=== PATIENT | male | born 1965 | race African-American/Black ===

== ENCOUNTER 2017-02-10 08:27 | Day surgery (SDC) | payer BC, OTHER ==
--- NOTE | 2017-01-29 16:12 | P.GSHP ---
History of Present Illness H&P Date: 01/29/17 Chief Complaint: Bilateral groin skin lesions Patient seen in the office complaining of lesions in both groins. These been there for some years but increasing in size. He states they're painful at times and quite difficult to keep clean. He is unsure as to the etiology. He has also seen other specialists for this in the past. He did have attempts at ablation by manager quality systems performed which she states was not helpful. No history of genital warts. Surgical - Exam Physical exam: General: Well-developed, well-nourished HEENT: Normocephalic, sclerae nonicteric Abdomen: Nontender, nondistended Extremities: No edema, bilateral groin with warty growths noted, these are somewhat raised and verrucous, mild tenderness, largest skin lesion in the right groin measuring approximately 2 cm, no erythema Neuro: Alert and oriented Assessment and Plan (1) Skin lesion Narrative/Plan: We'll proceed with surgical excision of these lesions with possible ablation of the smaller ones on 712. The risks of bleeding infection and recurrence were discussed. He understands and wishes to proceed. Status: Acute
[2017-02-08 09:38] VITALS: BMI 37.0
[~2017-02-10 08:27] MED LIST: DEXAMETHASONE SOD PHOSPHATE 10 MG/ML 1 ML VIAL IV ONE; HEPARIN SODIUM,PORCINE 5,000 UNIT/ML 1 ML VIAL SQ ONE; HYDROmorphone 1 MG/ML 1 ML SYRINGE IVP PRN; LACTATED RINGERS 1,000 ML IV SCH; MIDAZOLAM 2 MG/2 ML VIAL IV PRN; ONDANSETRON 4 MG/2 ML VIAL IVP ONE; Pre Op ABX Message 1 EACH MISC MISCELLANE ONE; SCOPOLAMINE 1.5MG/72HR PATCH TRANSDERM ONE
[2017-02-10] MEDS ORDERED: ceFAZolin 2 GM in SODIUM CHLORIDE 0.9% 100 ML IVPB STA (09:48)
[2017-02-10] MEDS ORDERED: MIDAZOLAM 2 MG/2 ML VIAL ONE (10:06)
[2017-02-10] MEDS ORDERED: fentaNYL (PF) 50 MCG/ML 2 ML AMP ONE (10:06)
[2017-02-10] MEDS ORDERED: PROPOFOL 10 MG/ML 20 ML VIAL IV ONE (10:06)
[2017-02-10] MEDS ORDERED: BUPIVACAINE (PF) 0.25% 30 ML VIAL SQ ONE ×2 (10:25)
[2017-02-10] MEDS ORDERED: LACTATED RINGERS 1,000 ML IV ONE (10:32)
[2017-02-10] MEDS ORDERED: BACITRACIN 500 UNIT/GM OINT 28.4 GM TUBE TOPICAL ONE (10:37)
[2017-02-10] MEDS ORDERED: NALOXONE 0.4 MG/ML 1 ML VIAL IV PRN (10:42)
[2017-02-10] MEDS ORDERED: HYDROcodone/APAP 5-325MG 1 EACH TAB PO PRN (10:42)
--- NOTE | 2017-02-10 10:44 | P.PCN ---
Date of Procedure: 02/10/17 Preoperative Diagnosis: Postoperative Diagnosis: Procedure(s) Performed: PREOPERATIVE DIAGNOSIS: Bilateral groin lesion suspect condyloma POSTOPERATIVE DIAGNOSIS: Same PROCEDURE: Excision SURGEON: Kelsey EBL: Minimal ANESTHESIA: Sedation COMPLICATIONS: None OPERATIVE PROCEDURE: Patient's place never table in the frog-leg position. Both groins were prepped and draped in usual sterile fashion. The patient had 2 separate area of lesions in the right groin. The first was removed and this measured approximately 2 x 3.5 cm. This is excised sharply. The skin incision itself was closed using a running 4-0 nylon stitch after a single 3-0 Vicryl simultaneous stitch was placed. A smaller 1 cm lesion was seen lateral to this and excised in a similar fashion and closed using a single 4-0 nylon stitch. The left groin had a 1.5 similar lesion that was excised and removed closed using 2 separate 4 nylon sutures. Sterile dressings were applied. DISPOSITION: Stable to recovery room Implants: Indications for Procedure: Operative Findings: Description of Procedure:
[2017-02-10 10:54] VITALS: RESP 18; TEMP 97.4
[2017-02-10 12:06] VITALS: BP 139/87; PULSE 57
== END 2017-02-10 12:26 | disposition home or self-care (01) ==
LOC: OR 08:27
PROVIDERS: ATTEND Surgery
DX: A63.0 Anogenital (venereal) warts (principal); I10 Essential (primary) hypertension; Z79.899 Other long term (current) drug therapy
CPT/HCPCS: 88305; 11406; J2250; J1644; J1100; J0690; J2405; J3010; J2704

== ENCOUNTER → 2017-06-09 | Outpatient (CLI) | payer OTHER ==
--- NOTE | 2017-06-09 22:10 | MR ---
EXAMINATION TYPE: MR sharonine/lspine wo con DATE OF EXAM: 06/09/2017 COMPARISON: NONE HISTORY: Cervicalgia and lumbago per order. Headache with neck pain causing pain or weakness in both arms and fingers per patient. Low back pain for over 10 years radiating to right buttocks thigh and c kwame per patient. TECHNIQUE: Multiplanar, multisequence imaging of the cervical and lumbar spine are performed without IV contrast. FINDINGS: C-SPINE: FINDINGS: Sagittal images of the cervical spine show the craniocervical junction to appear within nor mal limits. The cervical and upper thoracic spinal cord shows mild AP diameter narrowing with some i ncreased signal at C5-C6 level where there is prominent posterior disc herniation seen on sagittal im age 6. Vertebral alignment is straightened. The vertebral body and intravertebral disk heights are normal. Additional posterior disc herniations are present C4-C5 C7-T1 and most prominent at T1-T2 le vels on sagittal images The bone marrow signal intensity is within normal limits. Mild anterior spurr ing anterior inferior C5 endplate is noted. Axial images show the C2-C3 level to appear within normal limits. Axial images at C3-C4 level show broad based posterior disc protrusion causing mild to moderate left greater than right neural foraminal narrowing. Spinal canal is preserved. Axial images at C4-C5 level show broad disc protrusion with more focal left paracentral/foraminal dis c protrusion component. There is effacement of the anterior thecal sac. There is moderate to severe l eft and mild to moderate right-sided neural foraminal narrowing at this level identified. Axial images at C5-C6 level show broad-based posterior disc protrusion with more prominent right para central component. There is effacement of anterior thecal sac up to ventral surface of spinal cord wh ich is flattened with increased signal on axial image 21. There is advanced left and moderate right-s ided neural foraminal narrowing at this level identified. Axial images at C6-C7 level show broad-based posterior disc protrusion effacing anterior thecal sac w ith advanced left and mild to moderate right-sided neural foraminal narrowing seen. Axial images at C7-T1 level show broad-based lobulated posterior disc protrusion effacing anterior th ecal sac with mild left greater than right neural foraminal narrowing at this level identified. IMPRESSION: Straightening of cervical spine with multilevel degenerative changes seen, attention to C5-C6 level where there is mass effect or edema on spinal cord due to disc herniation. Other findings are noted as detailed above. L-SPINE: Exam is noted suboptimal as patient only completed T2 sagittal imaging and then could not co mplete further sequences. Sagittal T2 images of the lumbar spine show vertebral body heights and alig nment to appear satisfactory. The intervertebral discs demonstrate some disc desiccation lower lumbar levels but disc space heights are maintained. No large posterior disc herniations are present on sag ittal images. The conus medullaris is normal in position and signal ending near mid L1 level. The b one marrow signal intensity is within normal limits. No significant spurring is seen. IMPRESSION: Suboptimal study, no significant or suspicious findings identified on single sagittal T2 sequence.
== END | disposition home or self-care (01) ==
LOC: RADMRIMAIN 20:47
PROVIDERS: ATTEND Psychiatry & Neurology Neurology
DX: M54.5 Low back pain (principal)
CPT/HCPCS: 72141; 72148

== ENCOUNTER → 2018-04-13 | Outpatient (CLI) | payer OTHER ==
[2018-04-13 10:36] LABS: Basophils % (A) 1 %; Eosinophils # (A) 0.1 k/uL (0-0.7); Eosinophils % (A) 2 %; HGB 14.7 gm/dL (13.0-17.5); Lymphocytes # (A) 2.2 k/uL (1.0-4.8); Lymphocytes % (A) 49 %; MCH 30.3 pg (25.0-35.0); MCHC 31.9 g/dL (31.0-37.0); Mean Platelet Volume 7.6; Monocytes # (A) 0.3 k/uL (0-1.0); Monocytes % (A) 7 %; Neutrophils # (A) 1.8 k/uL (1.3-7.7); Neutrophils % (A) 40 %; Platelet Count 224 k/uL (150-450); RBC 4.84 m/uL (4.30-5.90); RDW 13.2 % (11.5-15.5); WBC 4.5 k/uL (3.8-10.6)
== END | disposition home or self-care (01) ==
LOC: LABPAT 09:49
PROVIDERS: ATTEND Orthopaedic Surgery
DX: Z01.818 Encounter for other preprocedural examination (principal); M23.92 Unspecified internal derangement of left knee; Z01.812 Encounter for preprocedural laboratory examination
CPT/HCPCS: 36415; 80051; 85025; 93005

== ENCOUNTER 2018-04-27 10:03 | Day surgery (SDC) | payer OTHER ==
[2018-04-20 13:14] VITALS: BMI 35.9
--- NOTE | 2018-04-26 19:38 | HP ---
HISTORY AND PHYSICAL REASON FOR ADMISSION: Surgery is scheduled for 04/27/2018. Freddy Jordan is a 52-year-old patient seen with progressive left knee pain. Treatment options were discussed. He elected to proceed with left knee arthroscopy. Consent was obtained. PAST MEDICAL HISTORY: Hypertension. PAST SURGICAL HISTORY: Left shoulder arthroscopy. MEDICATIONS: Cardizem, Flomax, hydrochlorothiazide, lisinopril, [place]. ALLERGIES: DARVOCET. SOCIAL HISTORY: The patient denies tobacco use. PHYSICAL EXAMINATION: Evaluation of left knee: Range of motion is 0 to 125 degrees. Mild effusion. Tenderness medial joint line. Positive medial Mark's. Crepitus medial patellofemoral compartments. Ligaments stable. Hip rotation without pain. Distal neurovascular exam intact. RADIOGRAPHS: Radiographs of the left knee revealed mild osteoarthritis. MRI of the left knee revealed medial meniscal tear, osteoarthritis, possible ACL tear. IMPRESSION: Internal derangement, left knee with medial meniscal tear and possible ACL tear. PLAN: Left knee arthroscopy with partial meniscectomy and debridement. Surgery scheduled for 04/27/2018. MMODL / IJN: [id number] /
[~2018-04-27 10:03] MED LIST changes: -DEXAMETHASONE SOD PHOSPHATE 10 MG/ML 1 ML VIAL IV ONE; -HEPARIN SODIUM,PORCINE 5,000 UNIT/ML 1 ML VIAL SQ ONE; -HYDROmorphone 1 MG/ML 1 ML SYRINGE IVP PRN; +LIDOCAINE 1% 20 ML VIAL (10MG/ML) FOR IV START INTRADERMA PRN; -MIDAZOLAM 2 MG/2 ML VIAL IV PRN; -ONDANSETRON 4 MG/2 ML VIAL IVP ONE; +ONDANSETRON 4 MG/2 ML VIAL ONE; -Pre Op ABX Message 1 EACH MISC MISCELLANE ONE; -SCOPOLAMINE 1.5MG/72HR PATCH TRANSDERM ONE
[2018-04-27] MEDS ORDERED: MIDAZOLAM 2 MG/2 ML VIAL ONE (12:07)
[2018-04-27] MEDS ORDERED: fentaNYL (PF) 50 MCG/ML 2 ML AMP ONE (12:07)
[2018-04-27] MEDS ORDERED: PROPOFOL 10 MG/ML 20 ML VIAL IV ONE (12:07)
[2018-04-27] MEDS ORDERED: LIDOCAINE 1% INJ 10MG/ML (20 ML MDV) ONE (12:07)
[2018-04-27] MEDS ORDERED: SUCCINYLCHOLINE CHLORIDE 100 MG/5 ML SYR IV ONE (12:07)
[2018-04-27] MEDS ORDERED: BUPIVACAIN-EPI 0.25%-1:200,000 30 ML VIAL INTRAARTIC ONE (12:25)
--- NOTE | 2018-04-27 12:56 | P.OP ---
Date of Procedure: 04/27/18 Preoperative Diagnosis: Internal derangement left knee Postoperative Diagnosis: 1. Tear medial and lateral meniscus left knee 2. Grade 2 chondromalacia patella left knee 3. Reactive synovitis medial and suprapatellar compartments left knee Procedure(s) Performed: 1. Arthroscopic partial medial and lateral meniscectomy left knee 2. Arthroscopic chondroplasty medial femoral condyle left knee 3. Arthroscopic partial synovectomy medial and suprapatellar compartments left knee Anesthesia: FIDENCIOA, local Surgeon: Jonathan Buchanan Estimated Blood Loss (ml): 10 Pathology: none sent Condition: stable Disposition: PACU Indications for Procedure: 52-year-old patient seen with progressive left knee pain. After having treatment options discussed, he elected to proceed with arthroscopy. Operative Findings: See description of procedure Description of Procedure: Patient was taken to the operative suite. Patient underwent a general anesthetic by the department of anesthesia. Patient was given preoperative antibiotics. The left lower extremity was placed in a well-padded arthroscopic leg hoyos. The left leg was prepped and draped in the normal sterile orthopedic fashion. A lateral parapatellar and suprapatellar incision was made. Trochars were inserted. Arthroscopy was initiated. Suprapatellar pouch revealed diffuse thick reactive synovitis. The patellofemoral joint appeared to articulate congruently. There grade 2 chondromalacia of the patella with some osteochondral tears present. The scope was guided into the medial gutter. No loose bodies or plica were identified. The scope was then guided into the medial compartment. A medial parapatellar incision was made. Trocar inserted followed by probe. Was a complex tear involving the posterior horn of the medial meniscus. There was thick reactive synovitis anteriorly. There was no smoking chondromalacia. There were no loose bodies. I performed a partial medial meniscectomy down to stable tissue. I performed a partial synovectomy decompressing that reactive synovitis. The residual meniscus was probed and found to be stable. There was good decompression of the synovitis anteriorly. Scope and probe were then guided into the intercondylar notch. Cruciates were identified, probed and found to be stable. The scope and probe were then guided into lateral compartment. There was a radial tear mid body lateral meniscus. No chondromalacia was present. No loose bodies were present. There was no synovitis synovitis present. I performed a partial lateral meniscectomy down to stable tissue. The residual meniscus was stable. The scope was in guided back into the suprapatellar compartment. I introduced a motorized shaver into the suprapatellar compartment. I debrided some piecemeal fragments of meniscus I encountered. I performed a chondroplasty of the patella down to stable tissue. I performed a partial synovectomy decompressing the thick reactive synovitis in the suprapatellar compartment. The residual osteochondral surface of patella was now probed and found to be stable. I took one more look on the entire knee, no residual debris. Instruments were now removed from the joint. The joint was infiltrated with .25% Marcaine. Steri- Strips were applied to the portal sites. Sterile dressings were applied. The patient was placed into a SHIN hose. No tourniquet was utilized. The patient was awakened, transferred to a bed and taken to recovery stable satisfactory condition.
[2018-04-27 13:02] VITALS: TEMP 98
[2018-04-27] MEDS: HYDROmorphone 0.5 MG/0.5 ML SYRINGE IVP PRN ×2 (13:11→13:16)
[2018-04-27 13:46] VITALS: RESP 18
[2018-04-27 14:23] VITALS: BP 140/82; PULSE 78
== END 2018-04-27 14:38 | disposition home or self-care (01) ==
LOC: OR 10:03
PROVIDERS: ATTEND Orthopaedic Surgery
DX: S83.242A Other tear of medial meniscus, current injury, left knee, initial encounter (principal); S83.282A Other tear of lateral meniscus, current injury, left knee, initial encounter; X58.XXXA Exposure to other specified factors, initial encounter; M22.42 Chondromalacia patellae, left knee; M65.862 Other synovitis and tenosynovitis, left lower leg; I10 Essential (primary) hypertension; Z79.891 Long term (current) use of opiate analgesic; Z79.899 Other long term (current) drug therapy; Z88.5 Allergy status to narcotic agent
CPT/HCPCS: 29880; J2250; J0690; J2405; J2001; J3010; J0330; J2704; J1170

== ENCOUNTER → 2019-04-06 | Outpatient (CLI) | payer OTHER ==
[2019-04-06 14:23] LABS: Basophils % (A) 0 %; Eosinophils # (A) 0.1 k/uL (0-0.7); Eosinophils % (A) 2 %; HCT 45.3 % (39.0-53.0); HGB 15.1 gm/dL (13.0-17.5); Lymphocytes # (A) 2.1 k/uL (1.0-4.8); Lymphocytes % (A) 37 %; MCH 31.7 pg (25.0-35.0); MCHC 33.3 g/dL (31.0-37.0); MCV 95.1 fL (80.0-100.0); Mean Platelet Volume 8.1; Monocytes # (A) 0.5 k/uL (0-1.0); Monocytes % (A) 9 %; Neutrophils # (A) 2.8 k/uL (1.3-7.7); Neutrophils % (A) 49 %; Platelet Count 236 k/uL (150-450); RBC 4.77 m/uL (4.30-5.90); RDW 14.1 % (11.5-15.5); WBC 5.6 k/uL (3.8-10.6)
[2019-04-06 14:33] LABS: Potassium 3.6 mmol/L (3.5-5.1)
== END | disposition home or self-care (01) ==
LOC: LABPAT 13:40
PROVIDERS: ATTEND Orthopaedic Surgery
DX: Z01.812 Encounter for preprocedural laboratory examination (principal); M23.92 Unspecified internal derangement of left knee
CPT/HCPCS: 80051; 85025; 93005

== ENCOUNTER 2019-04-13 10:37 | Day surgery (SDC) | payer OTHER ==
[2019-04-10 12:01] VITALS: BMI 37.2
--- NOTE | 2019-04-12 14:07 | HP ---
HISTORY AND PHYSICAL DATE OF SURGERY: 04/13/2019 Freddy Jordan is a 53-year-old patient seen with left knee pain, options regarding treatment were discussed. He elected to proceed with arthroscopy. Consent was obtained. PAST MEDICAL HISTORY: Hypertension. PAST SURGICAL HISTORY: Left shoulder arthroscopy and left knee arthroscopy. DAILY MEDICATIONS: 1. Cardizem. 2. Flomax. 3. Hydrochlorothiazide. 4. Lisinopril. ALLERGIES: DARVOCET. SOCIAL HISTORY: Denies tobacco use. PHYSICAL EVALUATION OF THE LEFT KNEE: His range of motion is -2/3 to 120 degrees. There is a moderate effusion present, tenderness medial joint line. Positive medial Mark's. Ligaments stable. Hip rotation without pain. Distal neurovascular exam is intact. RADIOGRAPHS OF THE LEFT KNEE: Revealed mild osteoarthritis. MRI left knee revealed medial meniscal tear. IMPRESSION: 1. Internal derangement left knee with medial meniscal tear. 2. Left knee osteoarthritis. 3. Hypertension. PLAN: Left knee arthroscopy with partial meniscectomy and debridement. MMODL / IJN: [id number] /
[~2019-04-13 10:37] MED LIST changes: -LACTATED RINGERS 1,000 ML IV SCH; -LIDOCAINE 1% 20 ML VIAL (10MG/ML) FOR IV START INTRADERMA PRN; -ONDANSETRON 4 MG/2 ML VIAL ONE; +ceFAZolin 3 GM in SODIUM CHLORIDE 0.9% 100 ML IVPB ONE
[2019-04-13] MEDS ORDERED: LIDOCAINE 1% 20 ML VIAL (10MG/ML) FOR IV START INTRADERMA ONE (11:14)
[2019-04-13 11:17] VITALS: TEMP 98
[2019-04-13] MEDS ORDERED: LACTATED RINGERS 1,000 ML IV ONE (11:17)
[2019-04-13] MEDS ORDERED: DEXAMETHASONE SOD PHOS (MDV) 100 MG/10 ML VIAL IVP ONE (11:18)
[2019-04-13] MEDS ORDERED: ONDANSETRON 4 MG/2 ML VIAL IVP ONE (11:18)
[2019-04-13] MEDS ORDERED: KETAMINE 10 MG/ML 20 ML VIAL ONE (12:24)
[2019-04-13] MEDS ORDERED: PROPOFOL 10 MG/ML 20 ML VIAL IV ONE (12:24)
[2019-04-13] MEDS ORDERED: MIDAZOLAM 2 MG/2 ML VIAL ONE (12:24)
[2019-04-13] MEDS ORDERED: SUCCINYLCHOLINE CHLORIDE 100 MG/5 ML SYR IV ONE (12:24)
[2019-04-13] MEDS ORDERED: LIDOCAINE 1% INJ 10MG/ML (20 ML MDV) ONE (12:24)
[2019-04-13] MEDS ORDERED: fentaNYL (PF) 50 MCG/ML 2 ML AMP ONE (12:24)
[2019-04-13] MEDS ORDERED: BUPIVACAINE (PF) 0.25% 30 ML VIAL INTRAARTIC ONE (12:51)
--- NOTE | 2019-04-13 13:24 | P.OP ---
Date of Procedure: 04/13/19 Preoperative Diagnosis: Internal derangement left knee Postoperative Diagnosis: 1. Tear medial meniscus left knee 2. Grade 2/3 chondromalacia patella left knee 3. Reactive synovitis medial, lateral and suprapatellar compartments left knee Procedure(s) Performed: 1. Arthroscopic partial medial meniscectomy left knee 2. Arthroscopic chondroplasty patella left knee 3. Arthroscopic partial synovectomy medial, lateral and suprapatellar compartments left knee Anesthesia: FIDENCIOA, local Surgeon: Jonathan Buchanan Estimated Blood Loss (ml): 10 Pathology: none sent Condition: stable Disposition: PACU Indications for Procedure: 53-year-old patient seen with progressive left knee pain. After having treatment options discussed, he elected to proceed with arthroscopy. Operative Findings: See description of procedure Description of Procedure: Patient was taken to the operative suite. Patient underwent a general anesthetic by the department of anesthesia. Patient was given preoperative antibiotics. The left lower extremity was placed in a well-padded arthroscopic leg hoyos. The left leg was prepped and draped in the normal sterile orthopedic fashion. A lateral parapatellar and suprapatellar incision was made. Trochars were inserted. Arthroscopy was initiated. Suprapatellar pouch revealed diffuse thick reactive synovitis. The patellofemoral joint appeared to articulate congruently. There was grade 2/3 chondromalacia of the patella with some peripheral osteochondral tears present. The scope was guided into the medial gutter. No loose bodies or plica were identified. The scope was then guided into the medial compartment. A medial parapatellar incision was made. Trocar inserted followed by probe. There was a complex tear involving the posterior horn of the medial meniscus which did slightly stem into the midbody. There were grade 3 chondromalacia changes of the tibial plateau and grade 2 chondromalacia changes of the femoral condyle. There were no osteochondral flap tears present. There was thick reactive synovitis anteriorly. I performed a partial medial meniscectomy down to stable tissue. I performed a partial synovectomy decompressing the thick reactive synovitis. The residual meniscus was stable. There was good decompression of the synovitis. Scope and probe were then guided into the intercondylar notch. Cruciates were identified, probed and found to be stable. The scope and probe were then guided into lateral compartment. The lateral meniscus was probed and found to be stable. There was no significant chondromalacia involving lateral compartment. There was some reactive synovitis anteriorly. I introduced a motorized shaver into the lateral compartment performed a partial synovectomy decompressing the thick reactive synovitis. The shaver was removed. There was good decompression of the synovitis. The scope was in guided back into the suprapatellar compartment. I introduced a motorized shaver into the suprapatellar compartment. I debrided some piecemeal fragments of meniscus I encountered. I performed a partial synovectomy decompressing the thick reactive synovitis. Shaver was removed. I took one more look on the entire knee, no residual debris. Instruments were now removed from the joint. The joint was infiltrated with .25% Marcaine. Steri- Strips were applied to the portal sites. Sterile dressings were applied. The patient was placed into a SHIN hose. No tourniquet was utilized. The patient was awakened, transferred to a bed and taken to recovery stable satisfactory condition.
[2019-04-13] MEDS: HYDROmorphone 1 MG/ML 1 ML SYRINGE IVP ONE ×2 (13:32→13:37)
[2019-04-13] MEDS ORDERED: HYDROmorphone 1 MG/ML 1 ML SYRINGE IVP ONE (14:01)
[2019-04-13 15:13] VITALS: BP 137/82; PULSE 70; RESP 20
== END 2019-04-13 15:18 | disposition home or self-care (01) ==
LOC: OR 10:37
PROVIDERS: ATTEND Orthopaedic Surgery
DX: M22.42 Chondromalacia patellae, left knee (principal); S83.232A Complex tear of medial meniscus, current injury, left knee, initial encounter; M65.862 Other synovitis and tenosynovitis, left lower leg; M17.12 Unilateral primary osteoarthritis, left knee; I10 Essential (primary) hypertension; J45.909 Unspecified asthma, uncomplicated; Z79.1 Long term (current) use of non-steroidal anti-inflammatories (NSAID); Z79.899 Other long term (current) drug therapy; Z88.5 Allergy status to narcotic agent; Z88.8 Allergy status to other drugs, medicaments and biological substances; Z98.890 Other specified postprocedural states; X58.XXXA Exposure to other specified factors, initial encounter
CPT/HCPCS: 29881; 29876; J2250; J0690; J2405; J2001; J3010; J1170; J1100; J0330; J2704

== ENCOUNTER → 2020-06-24 | Outpatient (CLI) | payer OTHER ==
[2020-06-24 11:37] VITALS: BP 139/83; PULSE 77; RESP 16; TEMP 98.8
--- NOTE | 2020-06-24 14:53 | P.PAINCN ---
History of Present Illness - Reason for Consult Consult date: 06/24/20 - History of Present Illness This is initial consultation visit for this 54 years old male with a chronic history of severe low back pain, started 15 years ago but intensity of the pain increased over the last 4 weeks, after he was moving stuff at home, the pain is constant and increases with any activity associated with numbness and tingling sensation, described the pain as burning stabbing squeezing, he denies any fever or night sweats. 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 at the [facility] , and he had some improvement of his pain, and he continued to have severe low back pain which is interfering with the quality of life, is currently on multiple pain medication with minimal benefit Past Medical History Past Medical History: Asthma, Hypertension, Musculoskeletal Disorder, Osteoarthritis (OA) Additional Past Medical History / Comment(s): HERNIATED DISCS., NUMBNESS RIGHT HAND AND LIMITED USE OF FINGERS DUE TO NERVE DAMAGE (HX RIGHT ELBOW SURGERY) History of Any Multi-Drug Resistant Organisms: None Reported Past Surgical History: Hernia Repair, Orthopedic Surgery Additional Past Surgical History / Comment(s): RIGHT ELBOW SURGERY (2014), arthroscopies knees Past Anesthesia/Blood Transfusion Reactions: No Reported Reaction Past Psychological History: No Psychological Hx Reported Smoking Status: Never smoker Past Alcohol Use History: None Reported Past Drug Use History: Marijuana Additional Drug Use History / Comment(s): CURRENT DAILY MARIJUANA USE. - Past Family History Father Family Medical History: Cancer Additional Family Medical History / Comment(s): PROSTATE CANCER Medications and Allergies Home Medications Medication Instructions Recorded Confirmed Type Albuterol Inhaler (Mhu) [Ventolin 1 - 2 puff INHALATION Q6HR PRN 02/08/17 06/24/20 History Hfa Inhaler] Cholecalciferol (Vitamin D3) 2,000 unit PO DAILY 02/08/17 06/24/20 History [Vitamin D3] lisinopriL 40 mg PO QAM 02/08/17 06/24/20 History Cyclobenzaprine [Flexeril] 10 mg PO BID 04/20/18 06/24/20 History Diltiazem HCl [Diltiazem ER] 240 mg PO QAM 04/20/18 06/24/20 History Gabapentin [Neurontin] 100 mg PO QAM 04/20/18 06/24/20 History Gabapentin [Neurontin] 300 mg PO HS 04/20/18 06/24/20 History Ibuprofen [Motrin] 600 mg PO Q8HR PRN 04/10/19 06/24/20 History Triamterene/Hydrochlorothiazid 1 each PO QAM 04/10/19 06/24/20 History [Triamterene-Hctz 37.5-25 mg Tb] Allergies Allergy/AdvReac Type Severity Reaction Status Date / Time diphenhydramine Allergy Rash/Hives Verified 06/24/20 11:26 [From Benadryl] Physical Exam Vitals: Vital Signs Temp Pulse Resp BP Pulse Ox 06/24/20 11:26 98.8 F 77 16 139/83 98 Physical Examinations : -Constitutiona : Cooperative , not in acute distress . -HEENT : nech : supple , no Lymphadenopathy , normal thyroid size . : eyes : no ptosis , no icterus, no photophobia . - neurologic : Cranial nerve II to XII intact , no focal neurological deffecit . -psychatric : alert , oriented X 3 , appropriate affect , intact judgment and insight . -Lymphatic : no Lymphadenopathy . - musculoskeltal : Lumber spine moter stegnth lower extremities ,thigh and legs 5/5 Right side , 5/5 Left side deep tendon reflexes : normal Knee Jerk , normal ankle Jerk lumber facet Loading Test =positive Right , positive Left Range of motion of the lumbar spine Flexion 30 degrees, extension 10 degrees strait leg raising test = positive at 45 degree Fabere test= positive Right , and positive LT . Sever tenderness over the Sacroiliac joint on the Right . Gaenslen test= positive right . Seated flexion test= positive right . Results Comments: MRI of the lumbar spine= L4 5 and L5-S1 lumbar bulging disc disease and lumbar facet degeneration Assessment and Plan Plan: Assessment and plan=1-lumbar radiculopathy. 2-lumbar degenerative disc disease. 3-lumbar spondylosis with lumbar facet arthropathy without myelopathy. 4-right sacroiliitis. Patient could benefit from lumbar epidural steroid injection at L5-S1. Procedure risk and benefits and alternatives discussed with the patient he agreed to the procedure Time with Patient: Greater than 30 PQRS Measure Charge Sheet Measure #130: Documentation of Current Meds in Medical Chart: Patient's medications documented in chart Measure #226: Tobacco Use: Screen & Cessation Intervention: Pt not a tobacco user Measure #111: Pneumonia Vaccination: Pneumococcal vaccine NOT administered or previously given Measure #47: Advance Care Plan: Advance care planning discussed & documented, pt chose/unable to give Measure #412: Opioid Treatment Agreement: No documentation of signed opioid treatment agreement Measure #408: Opioid Therapy Follow-up Evaluation: Patient had NO f/u eval minimum every 3 months during opioid therapy Measure #317: Preventitive Care & Scrn High Bld Press & F/U: Normal blood pressure, f/u not required Measure #128: Body Mass Index (BMI) Screening & Follow-up: BMI documented ABOVE normal parameters - f/u documented Measure #131: Pain Assessment & Follow-up: Pain positive & plan documented, Pain negative & plan not documented, Follow-up scheduled Measure #431: Unhealthy Alcohol Use Preventative Care & Scrn: Patient not identified as an unhealthy alcohol user PQRS Narrative: Smoking Status Never smoker Blood Pressure 139/83 Pain Intensity [Lower Back] 7 Scale Used Numeric (1 - 10) Hx Alcohol Use (MH) No Home Medications: Ambulatory Orders Albuterol Inhaler (Mhu) [Ventolin Hfa Inhaler] 1 - 2 puff INHALATION Q6HR PRN 02/08/17 Cholecalciferol (Vitamin D3) [Vitamin D3] 2,000 unit PO DAILY 02/08/17 lisinopriL 40 mg PO QAM 02/08/17 Cyclobenzaprine [Flexeril] 10 mg PO BID 04/20/18 Diltiazem HCl [Diltiazem ER] 240 mg PO QAM 04/20/18 Gabapentin [Neurontin] 100 mg PO QAM 04/20/18 Gabapentin [Neurontin] 300 mg PO HS 04/20/18 Ibuprofen [Motrin] 600 mg PO Q8HR PRN 04/10/19 Triamterene/Hydrochlorothiazid [Triamterene-Hctz 37.5-25 mg Tb] 1 each PO QAM 04/10/19
== END | disposition home or self-care (01) ==
LOC: PNWHC3 11:13
PROVIDERS: ATTEND Specialist
DX: M51.36 Other intervertebral disc degeneration, lumbar region (principal); M47.26 Other spondylosis with radiculopathy, lumbar region; M46.1 Sacroiliitis, not elsewhere classified; Z79.891 Long term (current) use of opiate analgesic; Z79.899 Other long term (current) drug therapy; Z88.8 Allergy status to other drugs, medicaments and biological substances
CPT/HCPCS: 99211

== ENCOUNTER 2020-07-09 08:59 | Day surgery (SDC) | payer OTHER ==
[~2020-07-09 08:59] MED LIST changes: +LACTATED RINGERS 1,000 ML IV SCH; -ceFAZolin 3 GM in SODIUM CHLORIDE 0.9% 100 ML IVPB ONE
[2020-07-09] MEDS ORDERED: LIDOCAINE 1% (10MG/ML) FOR IV START INTRADERMA ONE (09:34)
[2020-07-09 09:38] VITALS: TEMP 97.9
[2020-07-09] MEDS ORDERED: ROPIVACAINE 5MG/ML 20ML VIAL ONE (10:11)
[2020-07-09] MEDS ORDERED: MIDAZOLAM 2 MG/2 ML VIAL ONE (10:11)
[2020-07-09] MEDS ORDERED: IOPAMIDOL M200 10 ML VIAL ONE (10:11)
[2020-07-09] MEDS ORDERED: fentaNYL (PF) 50 MCG/ML 2 ML AMP ONE (10:11)
[2020-07-09] MEDS ORDERED: TRIAMCINOLONE ACETONIDE 40 MG/ML 1 ML VIAL ONE (10:11)
--- NOTE | 2020-07-09 10:30 | P.PCN ---
Date of Procedure: 07/09/20 Surgeon: eBcky Rachel Pathology: none sent Condition: stable Disposition: PACU Description of Procedure: PREOPERATIVE DIAGNOSIS: 1-Lumbar radiculopathy 2- Lumber Degenerative Disc Diseases. POSTOPERATIVE DIAGNOSIS: 1-Lumbar radiculopathy. 2-Lumbar Degenerative Disc Diseases PROCEDURE 1. Lumbar epidural steroid injection under fluoroscopic guidance at the L5-S1 level in the left paramedian approach. 2. Lumbar epidurogram. ANESTHESIA: Local with 1% lidocaine; and IV moderate conscious sedation with Versed and fentanyl EBL: Minimal PROCEDURE INDICATION: The patient with low back pain and radiculitis symptoms unresponsive to conservative treatment. Fluoroscopy was used to optimize visualization of the needle placement and to maximize safety. PROCEDURE DESCRIPTION / TECHNIQUE: The patient was seen and identified in the preoperative area. Risks, benefits, complications including but not limited to infections ,bleeding ,allergic reaction to the medications ,nerve damage and not complete pain relief , and alternatives were discussed with the patient. The patient agreed to proceed with the procedure and signed the consent. IV was started, and vital signs were stable. Patient was taken to the OR and time out was completed. The patient was placed in the prone position on procedure table and a pillow was placed under the abdomen to reduce lumbar lordosis. The lumbosacral area was prepped and draped in the usual sterile fashion with ChloraPrep.Patient was closely monitored during the procedure. Conscious sedation was used during the procedure to decrease patients anxiety. Vital signs were monitered during the entire procedure. Using anterior-posterior fluoroscopy, the 5-S1 interlaminar space was identified and the skin over this site was marked and then infiltrated with 1% lidocaine subcutaneously. Subsequently, a 20-gauge Tuohy epidural needle was inserted and advanced toward the epidural space using the Loss of resistance to air technique and guided by AP and lateral fluoroscopy. The correct needle position in the epidural space was verified with the injection of 1 mL of the water soluble contrast dye Omnipaque 180 contrast and observing an excellent epidurogram with the epidural spread of the dye, after negative aspiration for blood and CSF and in the absence of paresthesias. Again after negative aspiration, a 7 ml mixture containing 80 mg of Kenalog and 5 ml of preservative free Normal Saline, and 1 ml of preservative free ropivacaine 0.5% solution was injected and a washout of epidurogram was seen. Needle was withdrawn intact, skin was cleansed, and bandages were applied. patient tolerated procedure well and was transferred to PACU in stable condition.A copy of the needle placement picture was saved to the fluoroscopy machine. COMPLICATIONS: None
[2020-07-09 10:34] VITALS: RESP 16
--- NOTE | 2020-07-09 10:47 | FL ---
EXAMINATION TYPE: FL guided pain mgmt statistic DATE OF EXAM: 07/09/2020 CLINICAL HISTORY: Low back pain. TECHNIQUE: Fluoroscopy. COMPARISON: None. FINDINGS: Fluoroscopic guidance was provided during pain relief procedure performed by Dr. Rachel. A total of 6 seconds of fluoroscopic time was utilized during the procedure and two spot images are acquired. Images acquired shows needle localization near lumbosacral junction from posterior approac h. IMPRESSION: As Above.
[2020-07-09] MEDS ORDERED: IV FLUID CONTINUATION 1,000 ML IV ONE (10:48)
[2020-07-09 10:49] VITALS: BP 143/86; PULSE 87
== END 2020-07-09 10:58 | disposition home or self-care (01) ==
LOC: ORPAIN 08:59
PROVIDERS: ATTEND Anesthesiology
DX: M51.16 Intervertebral disc disorders with radiculopathy, lumbar region (principal); I10 Essential (primary) hypertension; Z88.8 Allergy status to other drugs, medicaments and biological substances
CPT/HCPCS: 62323; J2250; J3301; J3010; Q9966; J2795; 99152